=== PATIENT | male | born 1980 | race Caucasian/White ===

== ENCOUNTER 2017-02-19 19:07 | Emergency (ER) | payer OTHER ==
[~2017-02-19] VITALS: Ht 182.9 cm; Wt 118.5 kg
[~2017-02-19 19:07] MED LIST: ALBU6.7H INH; AMBI10TA PO; ATOM10 PO; DEPA500T PO; FEXO180 PO; FLOVENT INH; FLUO-1 PO; MAXZ PO; PROT40TA PO; SALM50I INH; ZAFI1TAB2 PO
[2017-02-19 19:45] VITALS: BP 144/96; PULSE 84; RESP 18; TEMP 98; O2SAT 98
[2017-02-19 21:11] VITALS: BP_SYST 130; BP_SYST 136; BP_DIAS 88; BP_DIAS 97; PULSE 71; RESP 18; O2SAT 98
[2017-02-19] MEDS ORDERED: SODIUM CHLORIDE 0.9% FLUSH 10 ML FLUSH IVF PRN (21:15)
[2017-02-19] MEDS ORDERED: RESP: ALBUTEROL 2.5 MG/IPRATROPIUM 0.5 MG NEB (SCH) INH ONE (21:15)
--- NOTE | 2017-02-19 21:19 | PD ---
HPI Chief Complaint: Chest Pain Time Seen by Provider: 21:03 Travel History International Travel<30 days: No Contact w/Intl Traveler<30days: No Traveled to known affect area: No History of Present Illness HPI Patient is a 36-year-old male comes in complaining of chest pain and shortness of breath. He says it started earlier today and has been pretty constant all day. He says the pain is on the left side of his chest and goes through to his shoulder. He says the last time he felt like this was about 2 or 3 years ago and he was diagnosed with pneumonia. He says he has not had any coughing or fever. 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 He is a smoker. He denies any drug use. He denies any family history of early cardiac problems. He denies any recent travel or leg pain or swelling. PFSH Past Medical History Arthritis: Yes Asthma: Yes Blood Disorders: No Depression: Yes Cancer: No Cardiovascular Problems: Yes Endocrine: No Genitourinary: No Hypertension: Yes Immune Disorder: No Musculoskeletal: Yes Neurologic: No Respiratory: Yes Social History Alcohol Use: No Tobacco Use: Yes (/2 PPD) Substance Use: No Allergies-Medications (Allergen,Severity, Reaction): Coded Allergies: meperidine (Unverified Allergy, Severe, HIVES, 02/19/17) Reported Meds & Prescriptions Reported Meds & Active Scripts Active Reported Ibuprofen 400 Mg Tab 400 Mg PO Q6H PRN Xanax (Alprazolam) 2 Mg Tab 3 Mg PO HS Review of Systems Except as stated in HPI: all other systems reviewed are Neg General / Constitutional: No: Fever, Chills HENT: No: Headaches, Lightheadedness Cardiovascular: Positive: Chest Pain or Discomfort Respiratory: Positive: Shortness of Breath, No: Cough Gastrointestinal: No: Nausea, Vomiting Musculoskeletal: No: Edema, Pain Skin: No Change in Pigmentation Neurologic: No: Weakness, Dizziness, Syncope Physical Exam Narrative GENERAL: Awake and alert, in no acute distress. SKIN: Focused skin assessment warm/dry. HEAD: Atraumatic. Normocephalic. EYES: Pupils equal and round. No scleral icterus. ENT: Mucous membranes pink and moist. NECK: Trachea midline. No JVD. CARDIOVASCULAR: Regular rate and rhythm. No murmur appreciated. RESPIRATORY: No accessory muscle use. Clear to auscultation. Decreased breath sounds on the left. GASTROINTESTINAL: Abdomen soft, non-tender, nondistended. MUSCULOSKELETAL: No obvious deformities. No clubbing. No cyanosis. No edema. No calf tenderness. NEUROLOGICAL: Awake and alert. No obvious cranial nerve deficits. Motor grossly within normal limits. Normal speech. PSYCHIATRIC: Appropriate mood and affect; insight and judgment normal. Data Data Last Documented VS Vital Signs Date Time Temp Pulse Resp B/P (MAP) Pulse Ox O2 Delivery O2 Flow Rate FiO2 02/19/17 23:03 97.6 73 17 137/99 (112) 98 Room Air Orders Orders Electrocardiogram (02/19/17 19:29) Complete Blood Count With Diff (02/19/17 21:11) Comprehensive Metabolic Panel (02/19/17 21:11) D-Dimer (02/19/17 21:11) Troponin I (02/19/17 21:11) Iv Access Insert/Monitor (02/19/17 21:11) Electrocardiogram (02/19/17 21:11) Ecg Monitoring (02/19/17 21:11) Oximetry (02/19/17 21:11) Oxygen Administration (02/19/17 21:11) Chest, Pa & Lat (02/19/17 21:11) Sodium Chloride 0.9% Flush (Ns Flush) (02/19/17 21:15) Albuterol-Ipratropium Neb (Duoneb Neb) (02/19/17 21:15) Ketorolac Inj (Toradol Inj) (02/19/17 22:45) Methylprednisolone So Succ Inj (Solumedr (02/19/17 22:45) Albuterol-Ipratropium Neb (Duoneb Neb) (02/19/17 22:45) Labs Laboratory Tests Test 02/19/17 21:22 White Blood Count 7.4 TH/MM3 Red Blood Count 4.88 MIL/MM3 Hemoglobin 12.9 GM/DL Hematocrit 39.7 % Mean Corpuscular Volume 81.3 FL Mean Corpuscular Hemoglobin 26.4 PG Mean Corpuscular Hemoglobin Concent 32.4 % Red Cell Distribution Width 14.9 % Platelet Count 234 TH/MM3 Mean Platelet Volume 10.7 FL Neutrophils (%) (Auto) 53.9 % Lymphocytes (%) (Auto) 34.3 % Monocytes (%) (Auto) 8.6 % Eosinophils (%) (Auto) 2.0 % Basophils (%) (Auto) 1.2 % Neutrophils # (Auto) 4.1 TH/MM3 Lymphocytes # (Auto) 2.5 TH/MM3 Monocytes # (Auto) 0.6 TH/MM3 Eosinophils # (Auto) 0.1 TH/MM3 Basophils # (Auto) 0.1 TH/MM3 CBC Comment DIFF FINAL Differential Comment D-Dimer Quantitative (PE/DVT) 0.46 MG/L FEU Blood Urea Nitrogen 13 MG/DL Creatinine 0.74 MG/DL Random Glucose 92 MG/DL Total Protein 7.1 GM/DL Albumin 3.7 GM/DL Calcium Level 8.3 MG/DL Alkaline Phosphatase 55 U/L Aspartate Amino Transf (AST/SGOT) 18 U/L Alanine Aminotransferase (ALT/SGPT) 19 U/L Total Bilirubin 0.2 MG/DL Sodium Level 140 MEQ/L Potassium Level 4.1 MEQ/L Chloride Level 109 MEQ/L Carbon Dioxide Level 24.1 MEQ/L Anion Gap 7 MEQ/L Estimat Glomerular Filtration Rate 120 ML/MIN Troponin I LESS THAN 0.02 NG/ML MDM Medical Decision Making Medical Screen Exam Complete: Yes Emergency Medical Condition: Yes Medical Record Reviewed: Yes Interpretation(s) ECG shows normal sinus rhythm at 78, no ST elevation or depression, normal intervals. Differential Diagnosis Pneumonia versus pneumothorax versus costochondritis versus bronchitis versus ACS Narrative Course Patient is a 36-year-old male comes in complaining of chest pain and shortness of breath. He says it feels like when he had pneumonia in the past. Exam shows decreased breath sounds bilaterally. IV established, labs sent. Labs show no acute abnormalities. D-dimer and troponin are negative. ECG shows no evidence of ischemia. Patient states he is not concerned about the chest pain as he believes it is likely due to a musculoskeletal issue. He was given 2 DuoNeb nebs and says he is breathing much better. He is also given a dose of Solu-Medrol. Explained to the patient that I cannot rule out cardiac causes for her symptoms with just testing done in the emergency department. I explained he could go home and have a heart attack, though I think it is unlikely at this point. He was offered admission, but declines at this time. He'll be discharged with a prescription for prednisone. He has albuterol at home. He is advised to quit smoking. He is advised follow-up with a primary care doctor. Advised to return to the ED as needed for any worsening symptoms. Diagnosis Primary Impression: Asthma exacerbation Patient Instructions: Asthma (ED), Chest Pain (ED), General Instructions Additional Instructions: Follow-up with a primary care doctor. Try to quit smoking. Take the steroids starting tomorrow as you have a dose today. Use her albuterol as needed for shortness of breath. Return to the ED as needed for any worsening symptoms. Scripts Prednisone (Prednisone) 50 Mg Tab 50 MG PO DAILY, #3 TAB 0 Refills Prov: Maite Camarena MD 02/19/17 Disposition: 01 DISCHARGE HOME Condition: Stable Maite Camarena MD Feb 19, 2017 21:19
[2017-02-19] MEDS ORDERED: IBUP400T20 PO (21:27)
[2017-02-19] MEDS ORDERED: XANA2TAB2 PO (21:27)
--- NOTE | 2017-02-19 21:35 | RADRPT ---
EXAM DATE/TIME: 02/19/2017 21:21 [facility] COMPARISON: No previous studies available for comparison. INDICATIONS : Chest pain. MEDICAL HISTORY : Asthma. SURGICAL HISTORY : None. ENCOUNTER: Initial ACUITY: 1 day PAIN SCORE: 4/10 LOCATION: Bilateral chest FINDINGS: PA and lateral views of the chest demonstrate the lungs to be symmetrically aerated without evidence of mass, infiltrate or effusion. The cardiomediastinal contours are unremarkable. Osseous structure s are intact. CONCLUSION: No acute disease. Navjot He MD on February 19, 2017 at 21:33 Board Certified Radiologist. This report was verified electronically.
[2017-02-19 21:42] LABS: AUTOMATED NEUTROPHIL # 4.1 TH/MM3 (1.8-7.7); BASOPHIL # 0.1 TH/MM3 (0-0.2); BASOPHIL % 1.2 % (0.0-2.0); EOSINOPHIL # 0.1 TH/MM3 (0-0.4); HEMATOCRIT 39.7 % (39.0-51.0); LYMPH % 34.3 % (9.0-44.0); LYMPHOCYTE # 2.5 TH/MM3 (1.0-4.8); MEAN CELL VOLUME 81.3 FL (80.0-100.0); MEAN CORPUSCULAR HEMOGLOBIN 26.4 PG (27.0-34.0); MEAN CORPUSCULAR HGB CONC 32.4 % (32.0-36.0); MONO % 8.6 % (0.0-8.0); NEUT % 53.9 % (16.0-70.0); PLATELET COUNT 234 TH/MM3 (150-450); RED BLOOD COUNT 4.88 MIL/MM3 (4.50-5.90); RED CELL DISTRIBUTION WIDTH 14.9 % (11.6-17.2); WHITE BLOOD COUNT 7.4 TH/MM3 (4.0-11.0)
[2017-02-19 21:49] LABS: CHLORIDE 109 MEQ/L (98-107); HEMO FLAGS DIFF FINAL; POTASSIUM 4.1 MEQ/L (3.5-5.1); SODIUM (NA) 140 MEQ/L (136-145)
[2017-02-19 21:52] LABS: ANION GAP 7 MEQ/L (5-15); BICARBONATE 24.1 MEQ/L (21.0-32.0)
[2017-02-19 21:53] LABS: BLOOD UREA NITROGEN 13 MG/DL (7-18)
[2017-02-19 21:55] LABS: ALT (GPT) 19 U/L (12-78)
[2017-02-19 21:56] LABS: AST (GOT) 18 U/L (15-37); GLOMERULAR FILTRATION RATE 120 ML/MIN (>89)
[2017-02-19 21:57] LABS: TOTAL BILIRUBIN ADULT 0.2 MG/DL (0.2-1.0)
[2017-02-19 21:58] LABS: ALKALINE PHOSPHATASE 55 U/L (45-117)
[2017-02-19] MEDS ORDERED: KETOROLAC TROMETHAMINE 30 MG/ML (IVP) VIAL IV PUSH ONE (22:45)
[2017-02-19] MEDS ORDERED: methylPREDNISolone SOD SUCC 125 MG/2 ML VIAL IV PUSH ONE (22:45)
[2017-02-19] MEDS ORDERED: RESP: ALBUTEROL 2.5 MG/IPRATROPIUM 0.5 MG NEB (SCH) NEB ONE (22:45)
[2017-02-19 23:03] VITALS: BP 137/99; PULSE 73; RESP 17; TEMP 97.6; O2SAT 98
[2017-02-19] MEDS ORDERED: PRED50 PO (23:20)
[2017-02-19 23:40] VITALS: RESP 18
--- NOTE | 2017-02-20 16:52 | EKG ---
Date Performed: 02/19/2017 Time Performed: 19:29:53 PTAGE: 36 years EKG: Sinus rhythm POSSIBLE LEFT ATRIAL ENLARGEMENT NONSPECIFIC T-WAVE ABNORMALITY Compared to previous tracing, the pa tient is no longer tachycardic BORDERLINE ECG PREVIOUS TRACING : 06/06/2009 18.00 DOCTOR: Kellie Velasco Interpretating Date/Time 02/20/2017 16:52:32
== END 2017-02-19 23:44 | disposition home or self-care (01) ==
LOC: PHED 19:07
DX: J45.901 Unspecified asthma with (acute) exacerbation (principal); F17.210 Nicotine dependence, cigarettes, uncomplicated; I10 Essential (primary) hypertension
CPT/HCPCS: 71020; 80053; 84484; 85025; 85379; 93005; 94640; 94664; 96374; 96375; 99285; J1885; J2930

== ENCOUNTER 2018-06-07 23:30 | Inpatient (IN) ==
--- NOTE | 2018-06-08 00:39 | ED ---
HPI General Chief complaint: Abdominal Pain Stated complaint: Back Pain x1 day Time Seen by Provider: 06/08/18 00:28 History of Present Illness HPI narrative: Patient is a 38-year-old male with history of psychiatric disorder, chronic back pain, worsening for the last 3 days. Patient stated that he has back pain radiating to his abdomen. He was evaluated yesterday in the ER, and in urgent care. He stated that CAT scan of the spine was done in [facility]. He does not know result. Patient denies IV drug abuse, no recent trauma reported. Patient ambulates well with pain. Asking for pain management. Related Data Home Medications Medication Instructions Recorded Confirmed divalproex 1,000 mg PO HS 06/06/18 06/07/18 doxepin 100 mg PO HS 06/06/18 06/07/18 lorazepam 0.5 mg PO HS 06/06/18 06/07/18 albuterol sulfate [Ventolin HFA] 2 puff INHALATION Q6H PRN 06/07/18 06/07/18 atomoxetine 40 mg PO QAM 06/07/18 06/07/18 Previous Rx's Medication Instructions Recorded pantoprazole [Protonix] 40 mg PO DAILY 56 Days #56 tab 06/06/18 Allergies Allergy/AdvReac Type Severity Reaction Status Date / Time meperidine Allergy Severe HIVES Verified 06/06/18 05:09 Opioids - Morphine Analogues Allergy Hives Verified 06/08/18 01:20 Review of Systems ROS: all other systems reviewed are negative Musculoskeletal Reports back pain PMFSH Medical History Medical History Back pain (Acute) Patient denies medical problems (Acute) Surgical History Surgical History History of gastric bypass (Acute) Social History Social History Substance History: No History of Abuse Second Hand Smoke Exposure: No Smoking Status: Never smoker Tobacco Type: Cigarettes How Often Do You Have a Drink Containing Alcohol: Monthly or less Recent Travel in [facility] within the Last 8 Weeks: No Recent Out of Country Travel within the Last 8 Weeks: No Immunization History Tetanus Immunization: >5 Years Exam Narrative Exam Narrative: GENERAL: 38-year-old male in pain distress. SKIN: Focused skin assessment warm/dry. HEAD: Atraumatic. Normocephalic. EYES: Pupils equal and round. No scleral icterus. No injection or drainage. ENT: No nasal bleeding or discharge. Mucous membranes pink and moist. NECK: Trachea midline. No JVD. CARDIOVASCULAR: Regular rate and rhythm. No murmur appreciated. RESPIRATORY: No accessory muscle use. Clear to auscultation. Breath sounds equal bilaterally. GASTROINTESTINAL: Abdomen soft, non-tender, nondistended. Hepatic and splenic margins not palpable. MUSCULOSKELETAL: Tenderness. Spinal from T10-L1. NEUROLOGICAL: Awake and alert. No obvious cranial nerve deficits. Motor grossly within normal limits. Normal speech. No neurologic deficit. PSYCHIATRIC: Appropriate mood and affect; insight and judgment normal. Course Initial Documented Vital Signs Temperature 99.8 F H 06/07/18 23:32 Pulse Rate 131 H 06/07/18 23:32 Blood Pressure 150/86 H 06/07/18 23:32 Pulse Oximetry 94 L 06/07/18 23:32 Last Documented Vital Signs Temperature 99.8 F H 06/07/18 23:32 Pulse Rate 105 H 06/08/18 04:26 Respiratory Rate 18 06/08/18 04:26 Blood Pressure 138/78 06/08/18 04:26 Pulse Oximetry 95 06/08/18 04:26 Medical Decision Making MDM Narrative Medical decision making narrative: Patient presented with exacerbation of chronic back pain. X-rays ordered, pain medication given. Reevaluation is pending. Labs noted, white count is mildly elevated possibly due to pneumonia.. On chest x-ray and CAT scan patient has chest mass with pleural effusion, cannot rule out pneumonia. For further evaluation and treatment patient needs to be admitted. Case was discussed with Dr. Velasquez, who asked to transfer the patient to main ER and admitted directly under Dr. Hunter service. Medical Screen Exam Complete: Yes Emergency Medical Condition: Yes Lab Data Result diagrams: 06/08/18 01:26 06/08/18 01:26 Lab Results 06/08/18 06/08/18 Range/Units 01:26 01:26 CBC w Diff Auto diff final WBC 14.5 H (4.0-11.0) th/mm3 RBC 4.96 (4.50-5.90) mil/mm3 Hgb 12.3 L (13.0-17.0) gm/dL Hct 38.0 L (39.0-51.0) % MCV 76.7 L (80.0-100.0) fL MCH 24.8 L (27.0-34.0) pg MCHC 32.3 (32.0-36.0) % RDW 14.6 (11.6-17.2) % Plt Count 311 (150-450) th/mm3 MPV 9.7 (7.0-11.0) fL Neut % (Auto) 76.5 H (16.0-70.0) % Lymph % (Auto) 12.5 (9.0-44.0) % [place] % (Auto) 9.6 H (0.0-8.0) % Eos % (Auto) 0.4 (0.0-4.0) % Baso % (Auto) 1.0 (0.0-2.0) % Neut # (Auto) 11.1 H (1.8-7.7) th/mm3 Lymph # (Auto) 1.8 (1.0-4.8) th/mm3 [place] # (Auto) 1.4 H (0.0-0.9) th/mm3 Eos # (Auto) 0.1 (0.0-0.4) th/mm3 Baso # (Auto) 0.1 (0.0-0.2) th/mm3 WBC Differential . Differential Comment . Sodium 137 (136-145) meq/L Potassium 4.2 (3.5-5.1) meq/L Chloride 106 (98-107) meq/L Carbon Dioxide 22.2 (21.0-32.0) meq/L Anion Gap 9 (5-15) meq/L BUN 11 (7-18) mg/dL Creatinine 0.85 (0.60-1.30) mg/dL Estimated GFR Greater than 89 (>89) mL/min Random Glucose 120 H (74-106) mg/dL Calcium 8.2 L (8.5-10.1) mg/dL Total Bilirubin 0.4 (0.2-1.0) mg/dL AST 37 (15-37) U/L ALT 15 (12-78) U/L Alkaline Phosphatase 56 (45-117) U/L Troponin I Less than 0.02 L (0.02-0.05) ng/mL Total Protein 7.4 (6.4-8.2) g/dL Albumin 3.3 L (3.4-5.0) g/dL Lipase 138 (73-393) U/L Imaging Data Radiologist's impression: Lumbar Spine X-Ray 06/08/18 00:34 CONCLUSION: Negative lumbar spine series. Thoracic Spine X-Ray 06/08/18 00:34 CONCLUSION: Negative thoracic spine series. Chest X-Ray 06/08/18 00:36 CONCLUSION: Mild to moderate left pleural effusion. Increased density at the left mediastinum. In this region, one could consider an enlarged pulmonary artery. Other mediastinal masses cannot be excluded. This could be further evaluated with CT examination of the chest. Abdomen/Pelvis CT 06/08/18 01:21 CONCLUSION: 1. No acute abnormality within the abdomen and pelvis. 2. Bowel ella seen around the stomach. 3. Small umbilical hernia containing mesenteric fat. Chest CTA 06/08/18 01:26 CONCLUSION: 1. Anterior mediastinal mass. This is nonspecific. In this location one could consider a thymoma, germ cell tumor, teratoma, lymphoma, or sarcoid. 2. Mild left pleural effusion with suspected atelectasis of portions of the left lower lobe. 3. No pulmonary embolus. Discharge Plan Discharge Disposition Patient Disposition: ED Admit(ED Internal Use Only) Discharge Condition Condition: Fair Discharge Order Discharge Orders: ED Use Only Admit Order (Routine); Ordered 06/08/18 Ordered By: Adonis Gongora Discharge Details Diagnosis: Mass in chest Physicians Team ED Provider: Adonis Gongora Primary Care Provider: Primary Care Akanksha Yan Attending Provider: Kobe Gonzalez Discharge Interventions Interventions: Vital Signs Last Done: 06/08/18 04:26 Status ED Status: Admitted Patient
--- NOTE | 2018-06-08 01:14 | XR ---
EXAM DATE: 06/08/2018 1:07 AM EST AGE/SEX: 38 years / Male INDICATIONS: Short of breath. Pain. CLINICAL DATA: This is the patient's initial encounter. Patient reports that signs and symptoms have been present for 2 days and indicates a pain score of 10/10. MEDICAL/SURGICAL HISTORY: None. . Bilateral ankle surgery. COMPARISON: [facility], CHEST PA & LAT, 02/19/2017. [facility], THORACIC SPINE AP/LAT/SW 3V, 06/08/2018. . FINDINGS: The heart size is within normal limits. There is increased density seen in the left mediastinum which could be from an enlarged pulmonary artery. This appearance was present on the prior exam. This incr eased density at the left base likely related to a left effusion. Some degree of superimposed atelect asis or consolidation may also be present. Right lung is clear. CONCLUSION: Mild to moderate left pleural effusion. Increased density at the left mediastinum. In this region, one could consider an enlarged pulmonary a rtery. Other mediastinal masses cannot be excluded. This could be further evaluated with CT examinati on of the chest. Electronically signed by: Guido Cifuentes MD Board Certified Radiologist 06/08/2018 1:12 AM EST
--- NOTE | 2018-06-08 01:16 | XR ---
EXAM DATE: 06/08/2018 1:09 AM EST AGE/SEX: 38 years / Male INDICATIONS: Pain. CLINICAL DATA: This is the patient's initial encounter. Patient reports that signs and symptoms have been present for 2 days and indicates a pain score of 10/10. MEDICAL/SURGICAL HISTORY: None. . Bilateral ankle surgery. COMPARISON: No prior exams available for comparison. FINDINGS: The vertebral bodies are in normal alignment without evidence of compression deformity. Bone density is normal for age. Soft tissues are grossly intact. CONCLUSION: Negative lumbar spine series. Electronically signed by: Guido Cifuentes MD Board Certified Radiologist 06/08/2018 1:15 AM EST
--- NOTE | 2018-06-08 01:17 | XR ---
EXAM DATE: 06/08/2018 1:08 AM EST AGE/SEX: 38 years / Male INDICATIONS: Pain. CLINICAL DATA: This is the patient's initial encounter. Patient reports that signs and symptoms have been present for 2 days and indicates a pain score of 10/10. MEDICAL/SURGICAL HISTORY: None. . Bilateral ankle surgery. COMPARISON: No prior exams available for comparison. FINDINGS: The vertebral bodies are in normal alignment without evidence of compression deformity. Bone density is normal for age. Soft tissues are grossly intact. There appears to be a bowel anastomosis suture in the medial left upper quadrant with adjacent clips. CONCLUSION: Negative thoracic spine series. Electronically signed by: Guido Cifuentes MD Board Certified Radiologist 06/08/2018 1:16 AM EST
[2018-06-08 01:40] LABS: Baso # (Auto) 0.1 th/mm3 (0.0-0.2); Eos # (Auto) 0.1 th/mm3 (0.0-0.4); Eos % (Auto) 0.4 % (0.0-4.0); Hemoglobin 12.3 gm/dL (13.0-17.0); Lymph # (Auto) 1.8 th/mm3 (1.0-4.8); Lymph % (Auto) 12.5 % (9.0-44.0); Mean Corpuscular HGB Conc 32.3 % (32.0-36.0); Mean Corpuscular Hemoglobin 24.8 pg (27.0-34.0); Mean Corpuscular Volume 76.7 fL (80.0-100.0); Mean Platelet Volume 9.7 fL (7.0-11.0); Mono # (Auto) 1.4 th/mm3 (0.0-0.9); Mono % (Auto) 9.6 % (0.0-8.0); Neut # (Auto) 11.1 th/mm3 (1.8-7.7); Neut % (Auto) 76.5 % (16.0-70.0); Platelet Count 311 th/mm3 (150-450); Red Blood Count 4.96 mil/mm3 (4.50-5.90); Red Cell Distribution Width 14.6 % (11.6-17.2); White Blood Count 14.5 th/mm3 (4.0-11.0)
[2018-06-08 01:50] LABS: Chloride 106 meq/L (98-107); Potassium 4.2 meq/L (3.5-5.1); Sodium 137 meq/L (136-145)
[2018-06-08 01:53] LABS: Albumin 3.3 g/dL (3.4-5.0); Anion Gap 9 meq/L (5-15); Blood Urea Nitrogen 11 mg/dL (7-18); Calcium 8.2 mg/dL (8.5-10.1); Carbon Dioxide 22.2 meq/L (21.0-32.0); Glucose,Random 120 mg/dL (74-106); Lipase 138 U/L (73-393)
[2018-06-08 01:56] LABS: Glomerular Filtration Rate Greater Than 89 mL/min (>89)
[2018-06-08 02:24] LABS: Alanine Aminotransferase 15 U/L (12-78); Alkaline Phosphatase 56 U/L (45-117); Aspartate Aminotransferase 37 U/L (15-37); Total Protein 7.4 g/dL (6.4-8.2)
--- NOTE | 2018-06-08 02:42 | CT ---
EXAM DATE: 06/08/2018 2:26 AM EST AGE/SEX: 38 years / Male INDICATIONS: Chest pain, shortness of breath. CLINICAL DATA: This is the patient's initial encounter. Patient reports that signs and symptoms have been present for 2 days and indicates a pain score of 8/10. MEDICAL/SURGICAL HISTORY: None. Gastric bypass. RADIATION DOSE: 23.98 CTDI (mGy) COMPARISON: No prior exams available for comparison. TECHNIQUE: Volumetric scanning was performed using a multi-row detector CT scanner during bolus infu eden of 100 ml Omnipaque 350 (iohexol) nonionic water-soluble contrast as a cumulative dose for mult iple exams. The data was post processed with a variety of visualization algorithms including full vol ume maximum intensity projection and sliding thin slab reformation. Using automated exposure control and adjustment of the mA and/or kV according to patient size, radiation dose was kept as low as reaso nably achievable to obtain optimal diagnostic quality images. DICOM format image data is available e lectronically for review and comparison. FINDINGS: Pulmonary Arteries: No filling defects are seen in the pulmonary arteries out to the subsegmental ve ssels. The left and right pulmonary arteries are normal in diameter. Lung: There is increased density seen in the posterior aspect of the left lower lobe likely related to atelectasis given the left pleural effusion. Effusion: There is a mild left pleural effusion. Mediastinum: There is a mass seen in the anterior mediastinum anterior to the ascending aorta and pu lmonary artery measuring approximately 5.9 cm in transverse dimension, 4.2 centers in AP dimension an d 7.8 cm in length. There appear to be either lobulations or separate smaller nodules at the posterio r superior margin of the mass. There are some curvilinear calcifications seen within this mass. Other: The axilla is unremarkable. Clips are seen around the proximal aspect of the stomach. CONCLUSION: 1. Anterior mediastinal mass. This is nonspecific. In this location one could consider a thymoma, ge rm cell tumor, teratoma, lymphoma, or sarcoid. 2. Mild left pleural effusion with suspected atelectasis of portions of the left lower lobe. 3. No pulmonary embolus. Electronically signed by: Guido Cifuentes MD Board Certified Radiologist 06/08/2018 2:40 AM EST
--- NOTE | 2018-06-08 02:47 | CT ---
EXAM DATE: 06/08/2018 2:27 AM EST AGE/SEX: 38 years / Male INDICATIONS: Upper abdominal pain. CLINICAL DATA: This is the patient's initial encounter. Patient reports that signs and symptoms have been present for 2 days and indicates a pain score of 8/10. MEDICAL/SURGICAL HISTORY: None. Gastric bypass. ORAL CONTRAST: No oral contrast ingested. RADIATION DOSE: 21.97 CTDI (mGy) COMPARISON: No prior exams available for comparison. TECHNIQUE: Multiple contiguous axial images were obtained through the abdomen and pelvis following b olus infusion of 99 ml Omnipaque 350 (iohexol) nonionic water-soluble contrast as a cumulative dose for multiple exams. No oral contrast ingested. Using automated exposure control and adjustment of t he mA and/or kV according to patient size, radiation dose was kept as low as reasonably achievable to obtain optimal diagnostic quality images. DICOM format image data is available electronically for r eview and comparison. FINDINGS: Lower Lungs: Please see the CTA of the chest report. There is a left pleural effusion, left lower lob e atelectasis and an anterior mediastinal mass. Liver: The liver has a homogeneous density without space-occupying lesion. There is no dilation of th e biliary tree. Spleen: Homogeneous density without enlargement. There is a splenule seen in the spine,. Pancreas: Unremarkable without mass or calcification. Kidneys: Normal in size and shape. No evidence of mass or hydronephrosis. Adrenal Glands: Unremarkable. Aorta: The aorta and proximal iliac vessels are grossly unremarkable without aneurysmal dilation. Bowel/Mesentery: Bowel ella are seen around the stomach. The bowel is otherwise unremarkable. Abdominal Wall: There is a minimal umbilical hernia containing mesenteric fat. Retroperitoneum: No evidence of adenopathy in the retrocrural, para-aortic, or deep pelvic regions. Bladder: Contours are smooth. Reproductive Organs: No abnormal masses or calcifications seen. Inguinal: The inguinal region is unremarkable without evidence of adenopathy. Bony Structures: Unremarkable. CONCLUSION: 1. No acute abnormality within the abdomen and pelvis. 2. Bowel ella seen around the stomach. 3. Small umbilical hernia containing mesenteric fat. Electronically signed by: Guido Cifuentes MD Board Certified Radiologist 06/08/2018 2:45 AM EST
[2018-06-08] MEDS ORDERED: levoFLOXacin 750 MG Tablet PO ONE (02:52)
[2018-06-08] MEDS: Ketorolac Inj 30 MG/ML (IVP) Vial IV.PUSH PRN ×3 (08:08→22:40)
--- NOTE | 2018-06-08 08:32 | P.HPIM ---
History of Present Illness Primary Care Physician: No Primary Care Physician History of Present Illness: Pt is 38 yo with doris, bipolar d/o, gastric bypass who presented to [facility] on 06/06 with epigastric pain through to his back. Pt was evaluated and thought to have gastritis as he had just eaten [place] food. Pt says the pain was persistent and he was seen at urgent care and had ct scan's but "no one called with results". he came back to ED and He had cta chest and ct a/p. he was found to have 4x6x8 mediastinal mass with left pleural effusion. he was sent to [facility] for bx and further managmement. Says toradol helped. He has taken Morphine small dose ok but in past he had some delusions. Denies any night sweats, no weight loss, no difficulty eating meals. has has some gayle recently. denies diarrhea but some constipation. Denies any axillary masses and no testicular masses. Mother has strong malignant hx. PMH: DORIS. doesnt use cpap much. bipolar d/o gastric bypass insomnia asthma bilateral ankle fusion sh: 1ppd tob x 20yrs no etoh FH: mother: multiple myeloma/thyroid ca, sarcoma leg Diagnosis (1) Mediastinal mass: (2) Asthma: (3) DORIS (obstructive sleep apnea): (4) Bipolar 1 disorder: (5) Pleural effusion: Inpatient Certification Inpatient Certification: I certify that the inpatient services were ordered in accordance with Medicare regulations governing the order. This includes certification that hospital inpatient services are reasonable and necessary and in the case of services not specified as inpatient-only under 42 CFR 419.22(n), that they are appropriately provided as inpatient services in accordance to with the 2-midnight benchmark under 43 CFR 412.3(e) Medications and Allergies Allergies Allergy/AdvReac Type Severity Reaction Status Date / Time meperidine Allergy Severe HIVES Verified 06/06/18 05:09 Opioids - Morphine Analogues AdvReac Mild Hallucinati Verified 06/08/18 07:51 ons Home Medications Medication Instructions Recorded Confirmed Type divalproex 1,000 mg PO HS 06/06/18 06/07/18 History doxepin 100 mg PO HS 06/06/18 06/07/18 History lorazepam 0.5 mg PO HS 06/06/18 06/07/18 History albuterol sulfate [Ventolin HFA] 2 puff INHALATION Q6H PRN 12/15/18 12/15/18 History atomoxetine 40 mg PO QAM 06/07/18 06/07/18 History Active Medications: Active Medications Ketorolac Tromethamine (Toradol Inj) 15 mg IV.PUSH Q6H PRN PRN Reason: pain 3-10 Stop: 06/13/18 07:22 Last Admin: 06/08/18 08:08 Dose: 15 mg Physical Exam Vital signs: Last Vital Signs Temp 99.1 F 06/08/18 08:00 Pulse 101 H 06/08/18 08:00 Resp 18 06/08/18 08:00 BP 131/80 06/08/18 08:00 Pulse Ox 100 06/08/18 08:00 Narrative: nad oriented heart reg lung diminished left base abd s/nt ext no edema no axillary palpable l.n.'s Results Labs CBC & Chem 7: 06/08/18 01:26 06/08/18 01:26 Caprini VTE Risk Assessment Caprini VTE Risk Assessment: No/Low Risk (score <= 1) Caprini Risk Assessment Model: Point Value = 1 Point Value = 2 Point Value = 3 Point Value = 5 Age 41-60 Minor surgery BMI > 25 kg/m2 Swollen legs Varicose veins or History of unexplained or recurrent spontaneous Oral contraceptives or hormone replacement Sepsis (< 1 month) Serious lung disease, including pneumonia (< 1 month) Abnormal pulmonary function Acute myocardial infarction Congestive heart failure (< 1 month) History of inflammatory bowel disease Medical patient at bed rest Age 61-74 Arthroscopic surgery Major open surgery (> 45 min) Laparoscopic surgery (> 45 min) Malignancy Confined to bed (> 72 hours) Immobilizing plaster cast Central venous access Age >= 75 History of VTE Family history of VTE Factor V Leiden Prothrombin [id number] Lupus anticoagulant Anticardiolipin antibodies Elevated serum homocysteine Heparin-induced thrombocytopenia Other congenital or acquired thrombophilia Stroke (< 1 month) Elective arthroplasty Hip, pelvis, or leg fracture Acute spinal cord injury (< 1 month) Prophylaxis Regimen: Total Risk Factor Score Risk Level Prophylaxis Regimen 0-1 Low Early ambulation 2 Moderate Order ONE of the following: *Sequential Compression Device (SCD) *Heparin 5000 units SQ BID 3-4 Higher Order ONE of the following medications: *Heparin 5000 units SQ TID *Enoxaparin/Lovenox 40 mg SQ daily (WT < 150 kg, CrCl > 30 mL/min) *Enoxaparin/Lovenox 30 mg SQ daily (WT < 150 kg, CrCl > 10-29 mL/min) *Enoxaparin/Lovenox 30 mg SQ BID (WT < 150 kg, CrCl > 30 mL/min) AND/OR *Sequential Compression Device (SCD) 5 or more Highest Order ONE of the following medications: *Heparin 5000 units SQ TID (Preferred with Epidurals) *Enoxaparin/Lovenox 40 mg SQ daily (WT < 150 kg, CrCl > 30 mL/min) *Enoxaparin/Lovenox 30 mg SQ daily (WT < 150 kg, CrCl > 10-29 mL/min) *Enoxaparin/Lovenox 30 mg SQ BID (WT < 150 kg, CrCl > 30 mL/min) AND *Sequential Compression Device (SCD) Assessment and Plan Assessment (1) Mediastinal mass: Code(s): J98.59 - Other diseases of mediastinum, not elsewhere classified Status: Acute (2) Pleural effusion: Code(s): J90 - Pleural effusion, not elsewhere classified Status: Acute (3) Asthma: Code(s): J45.909 - Unspecified asthma, uncomplicated Status: Chronic (4) DORIS (obstructive sleep apnea): Code(s): G47.33 - Obstructive sleep apnea (adult) (pediatric) Status: Chronic (5) Bipolar 1 disorder: Code(s): F31.9 - Bipolar disorder, unspecified Status: Chronic Plan 1. Mediastinal mass -Pt presented with epigastric and midback pain and found to have large mediastinal mass with associated left pleural effusion. ?lymphoma ?germ cell tumor, etc. -Pt mother has hx of "thyroid ca, multiple myeloma, sarcoma leg" -positive tobacco hx CTA 06/07: Mediastinum: There is a mass seen in the anterior mediastinum anterior to the ascending aorta and pulmonary artery measuring approximately 5.9 cm in transverse dimension, 4.2 centers in AP dimension and 7.8 cm in length. There appear to be either lobulations or separate smaller nodules at the posterior superior margin of the mass. There are some curvilinear calcifications seen within this mass.Other: The axilla is unremarkable. Clips are seen around the proximal aspect of the stomach.CONCLUSION:1. Anterior mediastinal mass. This is nonspecific. In this location one could consider a thymoma, germ cell tumor, teratoma, lymphoma, or sarcoid.2. Mild left pleural effusion with suspected atelectasis of portions of the left lower lobe.3. No pulmonary embolus. -consult IR for CT guided bx mediastinal mass -prn pain control . toradol. morphine. -dvt prophylaxis -consult oncology. -resume home medication. he wants to hold strattera. 2. pleural effusion left 3. doris 4. bipolar 5. hx gastric bypass 6. asthma H&P: Quality VTE Deep Vein Thrombosis/Pulmonary Embolism Present on Admission: No
[2018-06-08] MEDS: Docusate Sodium 100 MG Capsule PO SCH ×2 (10:26→21:46)
[2018-06-08 11:09] LABS: Activated Partial Thrombo Time 33.8 sec (23.4-31.7); INR 1.2 Ratio; Prothrombin Time 12.1 sec (9.8-11.6)
[2018-06-08] MEDS: Morphine Sulfate Inj 2 MG/ML Vial IV.PUSH PRN ×2 (13:42→18:10)
[2018-06-08] MEDS ORDERED: Divalproex 500 MG ER Tablet PO SCH (21:00)
[2018-06-08] MEDS ORDERED: LORazepam 0.5 MG Tablet PO SCH (21:00)
--- NOTE | 2018-06-08 22:18 | MB ---
cc: Leonor Manuel MD DATE: 06/08/2018 REASON FOR CONSULTATION: Consult requested by Dr. Gonzalez for evaluation of a mediastinal mass. HISTORY OF PRESENT ILLNESS: This is a 38-year-old male. He has a history of bipolar disorder. He also has a history of morbid obesity and underwent gastric bypass surgery. He was in his usual status of health up until 2 days ago, he started having mid sternal chest pain. He went to the urgent care center. He said that they did a CT scan, but he did not know the results of that. Since his pain was not getting better, he decided to come to the emergency room. He had a CT angiogram of the chest and CT scan of the abdomen and pelvis. This showed anterior mediastinal mass of 7.8 cm. The patient is transferred to [facility] from [facility] for biopsy. Dr. Gonzalez has admitted the patient and he is requesting Oncology consult. A radiologist has been consulted for CT-guided core needle biopsy. The patient denies any weight loss or anorexia. He is having problem with insomnia. The rest of the review of systems is negative. PAST MEDICAL HISTORY: Bipolar disorder, morbid obesity, insomnia, asthma, arthritis and sleep apnea syndrome, uses CPAP. PAST SURGICAL HISTORY: Gastric bypass surgery. ALLERGIES: OPIOIDS AND MORPHINE. MEDICATIONS PRIOR TO COMING TO THE HOSPITAL: 1. Divalproex. 2. Doxepin 3. Lorazepam. 4. Ventolin inhaler. 5. Atomoxetine. FAMILY HISTORY: Significant for mother who has sarcoma, thyroid cancer and multiple myeloma. She is still alive. SOCIAL HISTORY: The patient smokes cigarettes, 1 pack a day for 20 years. He does not drink alcohol. PHYSICAL EXAMINATION: GENERAL: He is a well-developed, well-nourished white male, in no apparent distress. VITAL SIGNS: Stable, afebrile. HEAD, EYES, EARS, NOSE, AND THROAT: Pupils equal, round, reactive to light and accommodation, extraocular movements intact. Anicteric. No oral lesions noted. No thrush noted. NECK: Supple. No JVD. No masses noted. LUNGS: Clear. No wheezing, rhonchi, or rales. HEART: Regular rate and rhythm. No murmur heard. ABDOMEN: Soft and nontender. No hepatosplenomegaly. No abnormal bowel sounds. No guarding or rigidity noted. EXTREMITIES: No pedal edema. No cyanosis, no clubbing. NEUROLOGIC: Awake, alert, oriented x 3. Sensory and motor seem to be intact. SKIN: No bruises or petechiae noted. BREASTS: No masses noted. LYMPH NODES: No cervical, supraclavicular, or axillary lymphadenopathy noted. BACK: There is no spinal tenderness noted. ASSESSMENT: 1. A 7.8 cm mediastinal mass. Highly suspicious for malignancy. The differential diagnosis is germ cell tumor versus lymphoma versus teratoma versus thymoma. 2. Mild left pleural effusion. 3. Bipolar disorder. 4. History of gastric bypass surgery for morbid obesity. PLAN: I have reviewed his available records and I have discussed with the patient regarding the large anterior mediastinal mass. I do agree for him to have a biopsy with an interventional radiologist. We did review the CT scan of the chest, abdomen and pelvis. The CT of the abdomen and pelvis is negative except it showed a small umbilical hernia. I have ordered the tumor markers such as alpha fetoprotein, beta hCG, LDH. His CBC shows white count of 14.5, hemoglobin 12.3, platelets are 311. Differential count is significant for neutrophilia with an absolute neutrophil count of 11.1 and absolute monocyte count of 1.4. The comprehensive metabolic profile is normal except glucose is 120, calcium is 8.2, albumin is 3.3. Further recommendations once we get the results of the biopsy. Thank you for asking my opinion. MD AFIA Rubalcava/shelton , 09:46 PM , 09:57 PM MISTY
[2018-06-09] MEDS: Ketorolac Inj 30 MG/ML (IVP) Vial IV.PUSH PRN (07:20)
[2018-06-09 07:43] LABS: Alpha Fetoprotein Tumor Marker 2.6 ng/mL (0.5-8.0); Lactate Dehydrogenase 187 U/L (87-241)
[2018-06-09 08:02] LABS: Anion Gap 9 meq/L (5-15); Blood Urea Nitrogen 16 mg/dL (7-18); Calcium 8.1 mg/dL (8.5-10.1); Carbon Dioxide 23.1 meq/L (21.0-32.0); Chloride 110 meq/L (98-107); Glomerular Filtration Rate Greater Than 89 mL/min (>89); Glucose,Random 97 mg/dL (74-106); Potassium 4.2 meq/L (3.5-5.1); Sodium 142 meq/L (136-145)
[2018-06-09] MEDS: Docusate Sodium 100 MG Capsule PO SCH (08:50)
--- NOTE | 2018-06-09 08:54 | P.PNONC ---
Subjective Interval history: T-max 100.2 F. Patient sitting up in bed, visiting with family. He is awaiting biopsy today. He reports night sweats times 2 days. Denies weight loss. His pain is currently controlled and he reports his last dose of morphine was at 6 PM yesterday. Objective Vital Signs/Intake & Output: Vital Signs 06/08/18 11:17 06/08/18 11:33 06/08/18 13:59 Temperature 98.5 F Pulse Rate 105 H 111 H 112 H Respiratory Rate 20 Blood Pressure 141/73 H Pulse Oximetry 100 06/08/18 16:00 06/08/18 19:30 06/08/18 19:35 Temperature 98.1 F 99.6 F Pulse Rate 100 H 106 H Respiratory Rate 18 18 16 Blood Pressure 130/75 131/79 Pulse Oximetry 100 96 06/08/18 20:04 06/08/18 23:04 06/09/18 00:05 Temperature 100.2 F H Pulse Rate 100 H 109 H 109 H Respiratory Rate 16 Blood Pressure 136/78 Pulse Oximetry 94 L 06/09/18 00:43 06/09/18 03:38 06/09/18 04:00 Temperature 98.1 F 98.1 F Pulse Rate 98 H 97 H Respiratory Rate 18 Blood Pressure 133/76 Pulse Oximetry 96 06/09/18 07:00 Temperature Pulse Rate 102 H Respiratory Rate Blood Pressure Pulse Oximetry Intake & Output 06/08/18 06/09/18 06/09/18 18:59 06:59 18:59 Intake Total 1280 / 1280 480 / 480 Balance 1280 / 1280 480 / 480 Weight 112.5 kg Intake: Oral 1280 / 1280 480 / 480 Other: # Voids 5 2 Date of Last Bowel Movement 06/08/18 06/08/18 # Bowel Movements 1 Result Diagrams: 06/08/18 01:26 06/09/18 06:57 Laboratory Results: Laboratory Results - last 24 hr 06/08/18 06/08/18 06/09/18 10:42 10:42 06:57 PT 12.1 H INR 1.2 APTT 33.8 H Sodium 142 Potassium 4.2 Chloride 110 H Carbon Dioxide 23.1 Anion Gap 9 BUN 16 Creatinine 0.73 Estimated GFR Greater than 89 Random Glucose 97 Calcium 8.1 L Lactate Dehydrogenase Tumor Marker AFP 3.1 Prostate Specific Ag Tumor Marker HCG 06/09/18 06/09/18 06:57 06:57 PT INR APTT Sodium Potassium Chloride Carbon Dioxide Anion Gap BUN Creatinine Estimated GFR Random Glucose Calcium Lactate Dehydrogenase 187 Tumor Marker AFP 2.6 Prostate Specific Ag 0.38 Tumor Marker HCG Less than 1 Medications: Active Medications Generic Name Dose Route Start Last Admin Trade Name Freq PRN Reason Stop Dose Admin Divalproex Sodium 1,000 mg 06/08/18 21:00 06/08/18 21:46 Depakote Er PO 1,000 mg HS SERGIO Administration Docusate Sodium 100 mg 06/08/18 10:00 06/08/18 21:46 Colace PO 100 mg BID SERGIO Administration Doxepin HCl 100 mg 06/08/18 21:00 06/08/18 21:46 Sinequan PO 100 mg HS SERGIO Administration Ketorolac Tromethamine 15 mg 06/08/18 07:23 06/09/18 07:20 Toradol Inj IV.PUSH 06/13/18 07:22 15 mg Q6H PRN Administration pain 3-10 Lorazepam 0.5 mg 06/08/18 21:00 06/08/18 21:46 Ativan PO 0.5 mg HS SERGIO Administration Morphine Sulfate 2 mg 06/08/18 08:43 06/08/18 18:10 Morphine Inj IV.PUSH 2 mg Q3H PRN Administration breakthrough pain over 7 Pantoprazole Sodium 40 mg 06/08/18 09:00 06/08/18 10:26 Protonix PO 40 mg DAILY SERGIO Administration Objective Remarks: GENERAL: Well-nourished, well-developed male patient, in no acute distress. SKIN: Warm and dry. HEAD: Normocephalic. EYES: No scleral icterus. No injection or drainage. NECK: Supple, trachea midline. CARDIOVASCULAR: Regular rate and rhythm without murmurs. RESPIRATORY: Posterior breath sounds clear, equal bilaterally. No accessory muscle use. GASTROINTESTINAL: Abdomen soft, non-tender, nondistended. EXTREMITIES: No cyanosis, or edema. MUSCULOSKELETAL: Adequate muscle tone. NEUROLOGICAL: No obvious focal deficit. Awake, alert, and oriented x3. PSYCHIATRIC: Appropriate mood and affect; insight and judgment normal. Assessment/Plan - Plan Assessment and plan: 1. 7.8 cm mediastinal mass, suspicious for malignancy. Tumor marker AFP 2.6, prostate-specific Ag 0.38 and tumor marker hCG less than 1. Pending biopsy today. 2. Left pleural effusion, mild. Asymptomatic. 3. Patient may be discharged from an oncology perspective after his biopsy today. He will need to follow-up in the regional oncology center for biopsy results. Information sent to new patient referrals. - Attending Statement The exam, history, and the medical decision-making described in the above note were completed with the assistance of the mid-level provider. I reviewed and agree with the findings presented. I attest that I had a [id number] encounter with the patient on the same day, and personally performed and documented my assessment and findings in the medical record. Patient denies any new complaint Mom present at bedside Patient is anxious to have biopsy today All tumor markers are normal IR will do biopsy of the mediastinal mass today Patient can be discharged from oncology standpoint after the biopsy. Patient was advised to call our office later this week to discuss the results of biopsy and make appointment Discussed with admitting physician
[2018-06-09] MEDS ORDERED: fentaNYL Citrate Inj 250 MCG/5 ML Ampul ONE (09:59)
--- NOTE | 2018-06-09 10:58 | P.RAD ---
Post Procedure Progress Note - Pre Procedure Diagnosis (1) Mediastinal mass - Post Procedure Diagnosis (1) Mediastinal mass - Procedure Information Procedure Date: 06/09/18 Supervising Radiologist: Ez Garber MD Estimated blood loss (mL): 2 Anesthesia: Local, Analgesia, Conscious Sedation - Plan of Activity Patient to Unit: [facility] Patient Condition: Good See PACS Report for procedural detail/treatment. Biopsy CT Mediastinal Mass Site: Anterior mediastinum Specimen: Core Biopsy Findings: 18 gauge core bx x3 (two in formalin and one in RPMI)
--- NOTE | 2018-06-09 13:01 | CT ---
EXAM DATE: 06/09/2018 11:03 AM EST AGE/SEX: 38 years / Male INDICATIONS: Mediastinal mass CLINICAL DATA: This is the patient's initial encounter. Patient reports that signs and symptoms have been present for 1 day and indicates a pain score of 0/10. MEDICAL/SURGICAL HISTORY: None. None. COMPARISON: No prior exams available for comparison. BIOPSY SITE: Left mediastinal MEDICATION(S): 5 mg midazolam (Versed) IV 175 mcg fentanyl (Sublimaze) IV DEVICE(S): 17 gauge Introducer 18 gauge BARD biopsy needle Three . . PROCEDURE: CT guided Left mediastinal biopsy Prior to the procedure informed consent was obtained. Any appropriate prior imaging studies were rev iewed. Using automated exposure control and adjustment of the mA and/or kV according to patient size, radiat ion dose was kept as low as reasonably achievable to obtain optimal diagnostic quality images. DICOM format image data is available electronically for review and comparison. The site was prepped in a sterile fashion. Full sterile technique was used, including cap, mask, norberto rile gloves and gown and a large sterile sheet. Hand hygiene and 2% chlorhexidine and/or betadine/al cohol prep was utilized per protocol for cutaneous antisepsis. The skin and subcutaneous tissues wer e infiltrated with local anesthetic solution. With CT guidance the previously identified target was localized. Biopsy was performed using the presc ribed needle as above. Adequate hemostasis was obtained with compression at the puncture site. Follow-up CT scan reveals no hemorrhage. The patient tolerated the procedure well and there were no complications. The patient was returned to the Radiology Outpatient Unit in stable condition. FINDINGS: 18-gauge core biopsy x3 of anterior mediastinal mass lesion as above. CONCLUSION: 1. Uncomplicated CT guided biopsy. Electronically signed by: Ez Garber MD Board Certified Radiologist 06/09/2018 1:00 PM EST
--- NOTE | 2018-06-09 13:06 | XR ---
EXAM DATE: 06/09/2018 1:00 PM EST AGE/SEX: 38 years / Male INDICATIONS: Post mediastinal biopsy. Evaluate for pneumothorax. CLINICAL DATA: This is the patient's subsequent encounter. Patient reports that signs and symptoms h ave been present for 2 days and indicates a pain score of 0/10. MEDICAL/SURGICAL HISTORY: None. . Bilateral ankle surgery. COMPARISON: [facility] [place] MEDIASTINAL, 06/09/2018. . FINDINGS: No pneumothorax is noted. Left perihilar infiltrate is noted consistent with possible atelectasis. Sm all left pleural effusion is noted. The heart is stable. The right lung is clear. CONCLUSION: 1. No pneumothorax noted. 2. Minimal left perihilar infiltrate consistent with possible atelectasis. 3. Small left pleural effusion. Electronically signed by: Lawson Maria MD Board Certified Radiologist 06/09/2018 1:05 PM EST
--- NOTE | 2018-06-09 14:50 | P.PNIM ---
Subjective Interval history: Pt had mediastinal mass biopsy today no new complaints, still with mediastinal chest discomfort which is similar to when he was admitted. Pt has received IV Toradol today with some relief but reports hx of ulcers with ibuprofen in the past Physical Exam Vital signs: Last Vital Signs Temp 97.8 F 06/09/18 13:58 Pulse 95 H 06/09/18 13:58 Resp 18 06/09/18 13:58 BP 129/81 06/09/18 13:58 Pulse Ox 97 06/09/18 13:58 Narrative: nad oriented heart reg lung diminished left base abd s/nt ext no edema no axillary palpable l.n.'s Results Labs CBC & Chem 7: 06/08/18 01:26 06/09/18 06:57 Imaging Lumbar Spine X-Ray 06/08/18 00:34 CONCLUSION: Negative lumbar spine series. Thoracic Spine X-Ray 06/08/18 00:34 CONCLUSION: Negative thoracic spine series. Chest X-Ray 06/08/18 00:36 CONCLUSION: Mild to moderate left pleural effusion. Increased density at the left mediastinum. In this region, one could consider an enlarged pulmonary artery. Other mediastinal masses cannot be excluded. This could be further evaluated with CT examination of the chest. Abdomen/Pelvis CT 06/08/18 01:21 CONCLUSION: 1. No acute abnormality within the abdomen and pelvis. 2. Bowel ella seen around the stomach. 3. Small umbilical hernia containing mesenteric fat. Chest CTA 06/08/18 01:26 CONCLUSION: 1. Anterior mediastinal mass. This is nonspecific. In this location one could consider a thymoma, germ cell tumor, teratoma, lymphoma, or sarcoid. 2. Mild left pleural effusion with suspected atelectasis of portions of the left lower lobe. 3. No pulmonary embolus. Needle Biopsy CT 06/09/18 00:00 CONCLUSION: 1. Uncomplicated CT guided biopsy. Chest X-Ray 06/09/18 12:38 CONCLUSION: 1. No pneumothorax noted. 2. Minimal left perihilar infiltrate consistent with possible atelectasis. 3. Small left pleural effusion. Assessment and Plan Assessment (1) Mediastinal mass: Code(s): J98.59 - Other diseases of mediastinum, not elsewhere classified Status: Acute (2) Asthma: Code(s): J45.909 - Unspecified asthma, uncomplicated Status: Chronic (3) PHAN (obstructive sleep apnea): Code(s): G47.33 - Obstructive sleep apnea (adult) (pediatric) Status: Chronic (4) Bipolar 1 disorder: Code(s): F31.9 - Bipolar disorder, unspecified Status: Chronic (5) Pleural effusion: Code(s): J90 - Pleural effusion, not elsewhere classified Status: Acute Plan 1. Mediastinal mass -Pt presented with epigastric and midback pain and found to have large mediastinal mass with associated left pleural effusion. ?lymphoma ?germ cell tumor, etc. - Pt mother has hx of "thyroid ca, multiple myeloma, sarcoma leg" -positive tobacco hx CTA 06/07: Mediastinum: There is a mass seen in the anterior mediastinum anterior to the ascending aorta and pulmonary artery measuring approximately 5.9 cm in transverse dimension, 4.2 centers in AP dimension and 7.8 cm in length. There appear to be either lobulations or separate smaller nodules at the posterior superior margin of the mass. There are some curvilinear calcifications seen within this mass.Other: The axilla is unremarkable. Clips are seen around the proximal aspect of the stomach.CONCLUSION:1. Anterior mediastinal mass. This is nonspecific. In this location one could consider a thymoma, germ cell tumor, teratoma, lymphoma, or sarcoid.2. Mild left pleural effusion with suspected atelectasis of portions of the left lower lobe.3. No pulmonary embolus. - Pt underwent CT guided bx of mediastinal mass on 06/09/18. Pathology is pending. - We will give a prescription for Ultram 50mg Q6H PRN for severe pain upon discharge. He can use Tylenol for mild to moderate pain - Appreciate consult from oncology. Pt has been cleared for discharge from an Oncology standpoint. He will need to followup in the office later this week for biopsy results. - Pt will need to call [facility] to establish with a PCP in the next few days. 2. pleural effusion left 3. phan 4. bipolar 5. hx gastric bypass 6. asthma Progress Note: Quality VTE Deep Vein Thrombosis/Pulmonary Embolism Present on Admission: No
[2018-06-09] MEDS ORDERED: Ibuprofen 600 MG Tablet PO PRN (15:40)
[2018-06-09] MEDS ORDERED: Acetaminophen 325 MG Tablet PO PRN (15:47)
== END 2018-06-09 17:14 | disposition home or self-care (01) ==
LOC: PHED 23:30 → PHEDA 06-08 03:46 → HCIN 06-08 06:00
PROVIDERS: ADMIT Hospitalist; ATTEND Hospitalist